=== PATIENT | female | born 1945 | race Asian ===

== ENCOUNTER → 2016-11-14 | Outpatient (CLI) | payer OTHER ==
[~2016-11-14] MED LIST: ALEN70TA4 PO; ATV/1 PO; MULT-506 PO
[2016-11-14 13:28] VITALS: BP 149/73; PULSE 82; TEMP 37; O2SAT 97
[2016-11-14 15:14] LABS: URINE APPEARANCE CLEAR (CLEAR); URINE BILIRUBIN NEG (NEG); URINE COLOR YELLOW; URINE NITRITE NEG (NEG); URINE PH 7.5 (4.5-7.5); URINE SPECIFIC GRAVITY 1.021 (1.000-1.030); UROBILINOGEN NEG (NEG)
[2016-11-14 15:17] LABS: MANUAL MICROSCOPIC REQUIRED? NO; REVIEW REQ? NO
--- NOTE | 2016-11-15 12:00 | Radiation Oncology Follow-Up ---
Radiation Oncology Follow-Up Date of Visit Nov 14, 2016. 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 Completed 04/27/2014. Last Edited By: Jayde Moore on Nov 16, 2014 16:45 Interim History She's been doing well over this past year. She denies any change in bowel habits. She does have urinary frequency and slight dysuria. She denies any pelvic pressure or pain. She has been seen by gynecologic oncology and had a Pap smear. Pap smear was performed 11/07/2016. This was satisfactory for evaluation. This was negative for intraepithelial lesion or malignancy. Accession number [id number]. She was seen by Dr. Mccabe and there was no signs of recurrence. She has had decreased appetite and weight loss. A PET scan was ordered. She has had issues with swallowing. She had a known history of vocal cord paralysis. She has follow-up appointment scheduled with Dr. Rolon. 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 ANY SEDATIVE OR HYPNOTIC MAY CAUSE COMPLETE OBSTRUCTION. Azithromycin (Verified Adverse Reaction, Unknown, GENERIC CAUSES VOMITING ; BRAND NAME ZITHROMAX OKAY, 10/28/15) Home Medications Scheduled Alendronate Sodium (Fosamax), 1 TAB PO WK Lorazepam (Ativan), 1 MG PO HS Multivitamin (Multivitamin), 1 TAB PO QAM Review of Systems Gastrointestinal: Symptoms: Diarrhea GI Comments: Diarrhea since coming back from [facility] - off and on Oral: Symptoms: No Problems Other Oral Symptoms: Has to eat moist food or coughs - seeing Dr. Rolon next week Respiratory: Symptoms: Dry Cough, SOB With Exertion Other Respiratory: Gets easily fatigued due to not being able to breath correctly Urinary: Symptoms: Pain, Burning, Nocturia Comments: Nocturia x 3 - having urinary symptoms worse since PAP Smear Skin: Symptoms: No Problems Physical Exam Vital Signs Date Time Temp Pulse Resp B/P (MAP) Pulse Ox O2 Delivery O2 Flow Rate FiO2 11/14/16 13:28 37.0 82 16 149/73 97 Fatigue: None General Appearance: no apparent distress Eyes: normal inspection, EOMI ENT: hearing grossly normal Neck: no adenopathy, thyroid normal Respiratory/Chest: lungs clear, no respiratory distress, no accessory muscle use Cardiovascular: regular rate, rhythm, no gallop, no murmur Genitourinary - Female: Normal external genitalia. Examination of the vagina reveals no vaginal discharge or bleeding. There are no visible or palpable lesions. No pain on bimanual examination. Anal / Rectum: Normal sphincter tone. No rectal masses no rectal bleeding. Neurologic/Psychiatric: no motor/sensory deficits, alert, normal mood/affect Skin: warm/dry Laboratory Studies Test 11/14/16 13:15 Urine Color YELLOW Urine Appearance CLEAR (CLEAR) Urine pH 7.5 (4.5-7.5) Urine Specific [place] 1.021 (1.000-1.030) Urine Protein NEG (NEG) Urine Glucose (UA) NEG (NEG) Urine Ketones NEG (NEG) Urine Occult Blood NEG (NEG) Urine Nitrite NEG (NEG) Urine Bilirubin NEG (NEG) Urine Urobilinogen NEG (NEG) Urine Leukocyte Esterase TRACE (NEG) Urine WBC (Auto) 1-5 /hpf (0-5) Urine RBC (Auto) 0-4 /hpf (0-4) Urine Hyaline Casts (Auto) 0 /lpf (0-5) Urine Epithelial Cells (Auto) 5-10 /lpf (0-5) Urine Bacteria (Auto) NEG (NEG) Assessment & Plan Plan: Continue regular follow-up with Dr. Mccabe, Dr. Rolon, and Dr. Kim. She is scheduled for PET scan November 19. We will review those findings in the electronic medical record. The urinalysis and urine C&S was obtained today. She'll be notified as to results. If there is a bladder infection and then this will be treated accordingly. We asked her to return to our office in 1 year. She may call if she has any questions or concerns in the interim. Total Time In Follow-Up I spent 25 minutes speaking to the patient performing examination. I spent 15 minutes reviewing information and complaining this note. AK Copy To Dante Lake M.D.; Marybel Mccabe D.O.
== END | disposition home or self-care (01) ==
LOC: C.ONC 13:15
PROVIDERS: ATTEND Physician Assistant Medical
DX: Z08 Encounter for follow-up examination after completed treatment for malignant neoplasm (principal); Z92.3 Personal history of irradiation; Z85.41 Personal history of malignant neoplasm of cervix uteri